=== PATIENT | male | born 1945 | race Caucasian/White ===

== ENCOUNTER 2017-04-03 05:24 | Emergency (ER) | payer MEDICARE, BC ==
[2017-04-03 06:05] VITALS: BP 157/88
--- NOTE | 2017-04-03 06:33 | EDM.PDOC ---
ED HPI GENERAL MEDICAL PROBLEM - General Chief Complaint: Genitourinary Problem Stated Complaint: PAINFUL URINATION Time Seen by Provider: 04/03/17 06:15 Source of Information: Reports: Patient History Limitations: Reports: No Limitations - History of Present Illness INITIAL COMMENTS - FREE TEXT/NARRATIVE: 71-year-old male with dysuria for the past week. He was taking [id number] azathioprine which decreased his symptoms for several days but over the last 24 hours it's much worse. Some lower abdominal pain but no back pain, no fever. He has had a urinary tract infection once 2 years ago. Denies nausea or vomiting. Onset: Gradual Severity: Mild Associated Symptoms: Reports: Other (No back pain). Denies: Fever/Chills, Malaise, Nausea/Vomiting, Shortness of Breath right abdominal pain Pain Score (Numeric/FACES): 5 headache Pain Score (Numeric/FACES): 6 - Related Data Allergies Allergy/AdvReac Type Severity Reaction Status Date / Time No Known Allergies Allergy Verified 04/03/17 05:44 Home Meds: Home Meds [place] 0.5 mg PO ASDIRECTED 04/03/17 [History] Cyanocobalamin (Vitamin B12) [Vitamin B13] 500 mcg PO DAILY 04/03/17 [History] Ergocalciferol (Vitamin D2) [Vitamin D2] 2,000 units PO DAILY 04/03/17 [History] Finasteride [Proscar] 5 mg PO BEDTIME 04/03/17 [History] Furosemide [Lasix] 40 mg PO DAILY 04/03/17 [History] Levothyroxine 175 mg PO ASDIRECTED 04/03/17 [History] Losartan [Cozaar] 100 mg PO DAILY 04/03/17 [History] Metoprolol Succinate 50 mg PO DAILY 04/03/17 [History] Multivitamin with Minerals [Multiple Vitamin] 1 tab PO DAILY 04/03/17 [History] [place]-3/DHA/Epa/Fish Oil [[place]-3 Fish Oil 1,000 MG Sfgl] 1,000 mg PO DAILY 07/16 [History] Omeprazole 40 mg PO DAILY 04/03/17 [History] Oxybutynin Chloride [Ditropan Xl] 10 mg PO BEDTIME 04/03/17 [History] Pravastatin [Pravachol] 20 mg PO BEDTIME 04/03/17 [History] Ranitidine HCl [Ranitidine] 300 mg PO BEDTIME 04/03/17 [History] Tamsulosin HCl [Flomax] 0.4 mg PO BEDTIME 04/03/17 [History] Vitamin E 400 unit PO DAILY 04/03/17 [History] Past Medical History HEENT History: Reports: Hard of Hearing, Impaired Vision Cardiovascular History: Reports: High Cholesterol, Hypertension Gastrointestinal History: Reports: GERD, Hemorrhoids, Other (See Below) 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 Genitourinary History: Reports: BPH Musculoskeletal History: Reports: Arthritis, Back Pain, Chronic, Neck Pain, Chronic, Other (See Below) Other Musculoskeletal History: bulging discs Neurological History: Reports: Headaches, Chronic, Migraines Dermatologic History: Reports: Other (See Below) Other Dermatologic History: damaged skin removed on forehead and cheeks due to sun damage - Infectious Disease History Infectious Disease History: Reports: Chicken Pox, Measles, Mumps - Past Surgical History GI Surgical History: Reports: Colonoscopy Musculoskeletal Surgical History: Reports: Shoulder Surgery, Other (See Below) Other Musculoskeletal Surgeries/Procedures:: right rotator cuff surgery 2015. bursitis right hip Social & Family History - Tobacco Use Smoking Status *Q: Never Smoker - Caffeine Use Caffeine Use: Reports: Coffee, Soda - Recreational Drug Use Recreational Drug Use: No ED ROS GENERAL - Review of Systems Review Of Systems: See Below Constitutional: Denies: Fever, Chills Respiratory: Denies: Shortness of Breath Cardiovascular: Denies: Chest Pain GI/Abdominal: Reports: Abdominal Pain. Denies: Nausea, Vomiting : Reports: Dysuria, Frequency (Patient urinated 4 times overnight), Urgency Skin: Reports: No Symptoms Neurological: Reports: No Symptoms. Denies: Headache ED EXAM, RENAL/ - Physical Exam Exam: See Below Exam Limited By: No Limitations General Appearance: Alert, No Apparent Distress Respiratory/Chest: No Respiratory Distress Cardiovascular: Regular Rate, Rhythm GI/Abdominal: Soft, Tender (Some discomfort to palpation across the lower abdomen) Back Exam: No: CVA Tenderness (R), CVA Tenderness (L) Neurological: Alert, Oriented Skin Exam: Warm, Dry Course - Vital Signs Last Recorded V/S: Last Vital Signs Temp 97.6 F 04/03/17 06:05 Pulse 71 04/03/17 06:05 Resp 17 04/03/17 06:05 BP 157/88 H 04/03/17 06:05 Pulse Ox 91 L 04/03/17 06:05 - Orders/Labs/Meds Orders: Active Orders 24 hr Category Date Time Status CULTURE URINE [RM] Stat Lab 04/03/17 06:24 Received Labs: Laboratory Tests 04/03/17 Range/Units 06:14 Urine Color Brown Urine Appearance Cloudy Urine pH 6.5 (4.5-8.0) Ur Specific [place] 1.015 (1.008-1.030) Urine Protein 500 H (NEGATIVE) mg/dL Urine Glucose (UA) Normal (NEGATIVE) mg/dL Urine Ketones Negative (NEGATIVE) mg/dL Urine Occult Blood Large (NEGATIVE) Urine Nitrite Positive H (NEGAITVE) Urine Bilirubin Small (NEGATIVE) Urine Urobilinogen 1 (NORMAL) mg/dL Ur Leukocyte Esterase Large (NEGATIVE) Urine RBC Semi-packed H (0-5) Urine WBC 20-30 H (0-5) Ur Epithelial Cells Rare Amorphous Sediment Not seen Urine Bacteria Many Urine Mucus Not seen - Re-Assessments/Exams Free Text/Narrative Re-Assessment/Exam: 04/03/17 06:32 A UA was obtained. He was markedly abnormal. Nitrite positive, bacteria and WBCs present. A culture was initiated. 04/03/17 06:38 Patient will be started on Bactrim DS twice a day for 5 days. I recommended he repeat the urine in 2-3 weeks if symptoms resolve to make sure that the hematuria resolves. He can return anytime if worsening, or recheck in 3-4 days if not improving satisfactorily. Departure - Departure Time of Disposition: 07:07 Disposition: Home, Self-Care 01 Condition: Good Clinical Impression: UTI, Urinary tract infectious disease - Discharge Information Instructions: Urinary Tract Infection, Adult, [id number] Referrals: PCP,None [Primary Care Provider] - Forms: ED Department Discharge Care Plan Goals: Take the antibiotic twice daily for the next 5 days. Consider rechecking in 2-3 days if not improving satisfactorily, or return anytime if worsening such as fever or vomiting the medication. It would also be prudent to recheck the urine in 2-3 weeks if symptoms resolve to make sure the blood in your urine clears as well. - My Orders Last 24 Hours: My Active Orders 04/03/17 06:24 CULTURE URINE [RM] Stat - Assessment/Plan Last 24 Hours: My Active Orders 04/03/17 06:24 CULTURE URINE [RM] Stat
== END 2017-04-03 07:06 | disposition home or self-care (01) ==
LOC: JP.ED 05:24
DX: N39.0 Urinary tract infection, site not specified (principal); I10 Essential (primary) hypertension; E78.00 Pure hypercholesterolemia, unspecified; G43.909 Migraine, unspecified, not intractable, without status migrainosus
CPT/HCPCS: 81001; 87086; 87088; 87186; 99283; 99284

== ENCOUNTER 2017-06-23 04:03 | Emergency (ER) | payer MEDICARE, BC ==
[2017-06-23] MEDS ORDERED: Aspirin 81 MG Tab.Chew PO ONE (04:13)
[2017-06-23] MEDS ORDERED: Ketorolac 60 MG/2 ML SDV IM ONE (04:18)
[2017-06-23] MEDS ORDERED: Codeine/guaiFENesin 100mg-10 MG/5 ML Syrup 10 ML Cup PO ONE (04:21)
--- NOTE | 2017-06-23 04:21 | EDM.PDOC ---
ED HPI GENERAL MEDICAL PROBLEM - General Chief Complaint: Chest Pain Stated Complaint: CHEST PAIN/SOB Time Seen by Provider: 06/23/17 04:12 Source of Information: Reports: Patient, RN Notes Reviewed History Limitations: Reports: No Limitations - History of Present Illness INITIAL COMMENTS - FREE TEXT/NARRATIVE: 71-year-old gentleman presents to the emergency department today with complaint of cough and chest discomfort, he states he's had chest pain for the last 2 days he did have exposure to grandchildren 3 days ago has developed a cough he states his chest is hurting from cough, denies any fevers no nausea vomiting no diaphoresis he does complain of shortness of breath does have a remote history of tobacco use no history of coronary artery disease Anterior Chest Pain Score (Numeric/FACES): 7 - Related Data Allergies Allergy/AdvReac Type Severity Reaction Status Date / Time No Known Allergies Allergy Verified 04/03/17 05:44 Home Meds: Home Meds Cabergoline 0.5 mg PO ASDIRECTED 04/03/17 [History] Cyanocobalamin (Vitamin B12) [Vitamin B13] 500 mcg PO DAILY 04/03/17 [History] Ergocalciferol (Vitamin D2) [Vitamin D2] 2,000 units PO DAILY 04/03/17 [History] Finasteride [Proscar] 5 mg PO BEDTIME 04/03/17 [History] Furosemide [Lasix] 40 mg PO DAILY 04/03/17 [History] Levothyroxine 175 mg PO ASDIRECTED 04/03/17 [History] Losartan [Cozaar] 100 mg PO DAILY 04/03/17 [History] Metoprolol Succinate 50 mg PO DAILY 04/03/17 [History] Multivitamin with Minerals [Multiple Vitamin] 1 tab PO DAILY 04/03/17 [History] [place]-3/DHA/Epa/Fish Oil [[place]-3 Fish Oil 1,000 MG Sfgl] 1,000 mg PO DAILY 07/16 [History] Omeprazole 40 mg PO DAILY 04/03/17 [History] Oxybutynin Chloride [Ditropan Xl] 10 mg PO BEDTIME 04/03/17 [History] Pravastatin [Pravachol] 40 mg PO BEDTIME 04/03/17 [History] Ranitidine HCl [Ranitidine] 300 mg PO BEDTIME 04/03/17 [History] Tamsulosin HCl [Flomax] 0.4 mg PO BEDTIME 04/03/17 [History] Vitamin E 400 unit PO DAILY 04/03/17 [History] Past Medical History HEENT History: Reports: Hard of Hearing, Impaired Vision Cardiovascular History: Reports: High Cholesterol, Hypertension Gastrointestinal History: Reports: GERD, Hemorrhoids, Other (See Below) 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 Genitourinary History: Reports: BPH Musculoskeletal History: Reports: Arthritis, Back Pain, Chronic, Neck Pain, Chronic, Other (See Below) Other Musculoskeletal History: bulging discs Neurological History: Reports: Headaches, Chronic, Migraines Dermatologic History: Reports: Other (See Below) Other Dermatologic History: damaged skin removed on forehead and cheeks due to sun damage - Infectious Disease History Infectious Disease History: Reports: Chicken Pox, Measles, Mumps - Past Surgical History GI Surgical History: Reports: Colonoscopy Musculoskeletal Surgical History: Reports: Shoulder Surgery, Other (See Below) Other Musculoskeletal Surgeries/Procedures:: right rotator cuff surgery 2015. bursitis right hip Social & Family History - Tobacco Use Smoking Status *Q: Never Smoker - Caffeine Use Caffeine Use: Reports: Coffee, Soda - Recreational Drug Use Recreational Drug Use: No ED ROS GENERAL - Review of Systems Review Of Systems: See Below Constitutional: Denies: Fever, Chills HEENT: Reports: No Symptoms Respiratory: Reports: Shortness of Breath, Pleuritic Chest Pain, Cough. Denies : Sputum Cardiovascular: Reports: Chest Pain GI/Abdominal: Reports: No Symptoms : Reports: No Symptoms Musculoskeletal: Reports: No Symptoms Skin: Reports: No Symptoms Neurological: Reports: No Symptoms ED EXAM, GENERAL - Physical Exam Exam: See Below Free Text/Narrative:: General: Male, not in any distress, alert and oriented x3 HEENT: head is atraumatic normocephalic, eyes pupils equal round reactive to light, sclera clear no conjunctivitis appreciated. Ears tympanic membranes clear and trejo landmarks and light reflex are present bilaterally canals are clear. Nose no septal deviation, nares are clear, no blood present. Mouth mucosa is moist and pink no erythema or exudate noted in soft palate, tongue is midline uvula is midline, dentition is intact. Neck: Supple no thyromegaly no tracheal deviation. Nodes: Cervical nodes subclavicular nodes nontender no palpable lymphadenopathy noted. Lungs: Coarse breath sounds but I don't appreciate any adventitious noises CV: Regular rate and rhythm S1 and S2 appreciated no murmurs rubs or gallops noted. Abdomen: Soft, nontender, no palpable masses or organomegaly appreciated, no distention no guarding bowel sounds are present, Neuro: Cranial nerves II through XII grossly intact Skin: Warm and dry, intact Extremities: No lower extremity edema appreciated, Course - Vital Signs Last Recorded V/S: Last Vital Signs Temp 97.5 F 06/23/17 04:10 Pulse 54 L 06/23/17 04:40 Resp 20 06/23/17 04:40 BP 118/77 06/23/17 04:40 Pulse Ox 94 L 06/23/17 04:40 - Orders/Labs/Meds Orders: Active Orders 24 hr Category Date Time Status Cardiac Monitoring [RC] .As Directed Care 06/23/17 04:13 Active EKG Documentation Completion [RC] ASDIRECTED Care 06/23/17 04:14 Active Chest 2V [CR] Urgent Exams 06/23/17 04:18 Taken EKG 12 Lead [EK] Stat Ther 06/23/17 04:14 Ordered Labs: Laboratory Tests 06/23/17 06/23/17 Range/Units 04:13 04:13 WBC 2.7 L (4.5-11.0) K/uL RBC 4.51 (4.30-5.90) M/uL Hgb 13.2 (12.0-15.0) g/dL Hct 39.9 L (40.0-54.0) % MCV 89 (80-98) fL MCH 29 (27-31) pg MCHC 33 (32-36) % Plt Count 148 L (150-400) K/uL Neut % (Auto) 50 (36-66) % Lymph % (Auto) 30 (24-44) % [place] % (Auto) 19 H (2-6) % Eos % (Auto) 1 L (2-4) % Baso % (Auto) 1 (0-1) % Sodium 140 (140-148) mmol/L Potassium 3.3 L (3.6-5.2) mmol/L Chloride 105 (100-108) mmol/L Carbon Dioxide 25 (21-32) mmol/L Anion Gap 13.3 (5.0-14.0) mmol/L BUN 24 H (7-18) mg/dL Creatinine 1.3 (0.8-1.3) mg/dL Est Cr Clr Drug Dosing 65.68 mL/min Estimated GFR (MDRD) 54 L (>60) Glucose 100 (74-106) mg/dL Calcium 8.4 L (8.5-10.1) mg/dL Total Bilirubin 0.5 (0.2-1.0) mg/dL AST 44 H (15-37) U/L ALT 39 (12-78) U/L Alkaline Phosphatase 53 (46-116) U/L CK-MB (CK-2) 1.5 (0-3.6) mg/mL Troponin I 0.026 (0.000-0.056) ng/mL NT-Pro-B Natriuret Pep 57 (5-125) pg/mL Total Protein 5.9 L (6.4-8.2) g/dL Albumin 2.4 L (3.4-5.0) g/dL Globulin 3.5 (2.3-3.5) g/dL Albumin/Globulin Ratio 0.7 L (1.2-2.2) Meds: Medications Discontinued Medications Generic Name Dose Route Start Last Admin Trade Name Freq PRN Reason Stop Dose Admin Aspirin 324 mg 06/23/17 04:13 Aspirin PO 06/23/17 04:14 ONETIME ONE Guaifenesin/Codeine Phosphate 10 ml 06/23/17 04:21 06/23/17 04:38 Robitussin Ac PO 06/23/17 04:22 10 ml ONETIME ONE Administration Ketorolac Tromethamine 60 mg 06/23/17 04:18 06/23/17 04:37 Toradol IM 06/23/17 04:19 60 mg ONETIME ONE Administration Departure - Departure Time of Disposition: 05:13 Disposition: Home, Self-Care 01 Condition: Good Clinical Impression: Bronchitis Referrals: PCP,None [Primary Care Provider] - Forms: ED Department Discharge Additional Instructions: Take full course of antibiotics, use ibuprofen as needed for chest pain symptoms , use Robitussin-AC as needed for cough, Please followup with your primary care provider in 3-5 days if not better, please call return to the emergency department with worsening of symptoms. - My Orders Last 24 Hours: My Active Orders 06/23/17 04:13 Cardiac Monitoring [RC] .As Directed 06/23/17 04:14 EKG Documentation Completion [RC] ASDIRECTED EKG 12 Lead [EK] Stat 06/23/17 04:18 Chest 2V [CR] Urgent - Assessment/Plan Last 24 Hours: My Active Orders 06/23/17 04:13 Cardiac Monitoring [RC] .As Directed 06/23/17 04:14 EKG Documentation Completion [RC] ASDIRECTED EKG 12 Lead [EK] Stat 06/23/17 04:18 Chest 2V [CR] Urgent Plan: Assessment Acuity = acute Site and laterality = bronchitis Etiology = probable bacterial cause Manifestations = cough, pleuritic chest pain Location of injury = Home Lab values = WBC low at 2.7 consistent leukopenia, potassium low at 3.3 consistent hypokalemia CK-MB and troponin both negative, probe BNP normal at 57 albumin low at 2.4 consistent with hypoalbuminemia EKG demonstrates sinus rhythm no ST depressions or elevations, chest x-ray I did review films myself I cannot appreciate any acute process, the official read from radiology is pending Plan He had significant relief of his chest pain with the Toradol 60 mg IM 1, Robitussin-AC did help suppress his cough. He'll be discharged home with Z-Evaristo per package directions, Robitussin-AC 10 mL by mouth every 6 hours when necessary total of 120 mL, follow-up with primary care 3-5 days if not better This note was dictated using [employer] voice recognition software please call with any questions on syntax or preeti.
[2017-06-23 05:14] VITALS: BP 95/61
--- NOTE | 2017-06-23 09:46 | CR ---
Chest 2V FINDINGS: The heart and vascular structures are normal in appearance. No infiltrates or effusions are demonstrated. There is mild fibrosis of the left lower lobe. The skeletal structures are unremarkabl e. IMPRESSION: 1. No acute findings.
== END 2017-06-23 05:19 | disposition home or self-care (01) ==
LOC: JP.ED 04:03
DX: J40 Bronchitis, not specified as acute or chronic (principal); E78.00 Pure hypercholesterolemia, unspecified; I10 Essential (primary) hypertension; Z79.899 Other long term (current) drug therapy
CPT/HCPCS: 36415; 71046; 80053; 82553; 83880; 84484; 85025; 93005; 96372; 99284; 99285; A9270; J1885

== ENCOUNTER 2021-10-27 12:30 | Emergency (ER) | payer MEDICARE, BC ==
[2021-10-27 13:10] VITALS: BP 183/92; PULSE 70
[2021-10-27] MEDS ORDERED: Doxycycline 100 MG Cap PO ONE (13:19)
== END 2021-10-27 13:31 | disposition home or self-care (01) ==
LOC: EEVIPCON 12:30 → JP.ED 12:30
DX: S30.860A Insect bite (nonvenomous) of lower back and pelvis, initial encounter (principal); I10 Essential (primary) hypertension; E78.00 Pure hypercholesterolemia, unspecified; K21.9 Gastro-esophageal reflux disease without esophagitis; Z79.899 Other long term (current) drug therapy; W57.XXXA Bitten or stung by nonvenomous insect and other nonvenomous arthropods, initial encounter
CPT/HCPCS: 99281; 99282; A9270

== ENCOUNTER 2022-02-27 07:14 | Emergency (ER) | payer MEDICARE, BC ==
[2022-02-27 08:08] VITALS: BP 160/88; PULSE 62
== END 2022-02-27 09:42 | disposition home or self-care (01) ==
LOC: JP.ED 07:14
DX: N39.0 Urinary tract infection, site not specified (principal); E78.00 Pure hypercholesterolemia, unspecified; I10 Essential (primary) hypertension; Z79.899 Other long term (current) drug therapy; Z87.891 Personal history of nicotine dependence
CPT/HCPCS: 81001; 87086; 87088; 87186; 99283

== ENCOUNTER 2023-01-10 08:22 | Emergency (ER) | payer MEDICARE, BC ==
[2023-01-10 08:48] VITALS: PULSE 58
[2023-01-10 09:45] LABS: ANION GAP 6.6 mmol/L (5.0-14.0); CALCIUM 8.4 mg/dL (8.5-10.1); CREATININE 1.2 mg/dL (0.8-1.3); EST CRCL DRUG DOSING (CG) 64.97 mL/min
[2023-01-10] MEDS ORDERED: Hydrochlorothiazide 25 MG Tab PO ONE (09:57)
[2023-01-10 10:26] VITALS: BP 162/84
== END 2023-01-10 10:31 | disposition home or self-care (01) ==
LOC: JP.ED 08:22
DX: I10 Essential (primary) hypertension (principal); E78.00 Pure hypercholesterolemia, unspecified; K21.9 Gastro-esophageal reflux disease without esophagitis; N40.0 Benign prostatic hyperplasia without lower urinary tract symptoms; E03.9 Hypothyroidism, unspecified; E66.9 Obesity, unspecified; Z68.33 Body mass index [BMI] 33.0-33.9, adult; Z79.82 Long term (current) use of aspirin; Z79.899 Other long term (current) drug therapy
CPT/HCPCS: 36415; 80048; 93005; 99283; A9270

== ENCOUNTER 2023-12-31 02:08 | Inpatient (IN) | payer MEDICARE ==
[2023-12-31 03:01] LABS: BASOPHILS ABSOLUTE AUTO 0.03 K/uL (0.00-0.10); BASOPHILS PERCENT AUTO 0.5 % (0.1-1.3); EOSINOPHILS PERCENT AUTO 3.4 % (0.0-5.4); HEMATOCRIT 41.3 % (38.4-49.7); HEMOGLOBIN 14.3 g/dL (12.9-16.9); IMMATURE GRAN PERCENT AUTO 0.2 % (0.0-0.7); LYMPHOCYTES ABSOLUTE AUTO 0.48 K/uL (0.8-3.3); LYMPHOCYTES PERCENT AUTO 8.2 % (11.4-47.7); MEAN CORPUSCULAR HGB CONC 34.6 g/dL (31.6-35.5); MEAN CORPUSCULAR VOLUME 86.6 fL (81.4-99.0); MONOCYTES ABSOLUTE AUTO 0.54 K/uL (0.20-0.90); MONOCYTES PERCENT AUTO 9.3 % (3.3-12.6); NEUTROPHILS ABSOLUTE AUTO 4.57 K/uL (1.0-7.6); NEUTROPHILS PERCENT AUTO 78.4 % (40.0-78.1); PLATELET COUNT,PLT 191 K/uL (130-375); RED BLOOD CELL COUNT 4.77 M/uL (4.14-5.76); WHITE BLOOD CELL COUNT,WBC 5.8 K/uL (3.2-11.0)
[2023-12-31 03:02] LABS: IMMATURE GRAN ABSOLUTE AUTO 0.01 K/uL (0.00-0.23)
[2023-12-31] MEDS: Sodium Chloride 0.9% 1,000 ML IV SCH ×2 (03:03→15:34)
[2023-12-31 03:19] LABS: LACTIC ACID 1.7 mmol/L (0.4-2.0)
[2023-12-31 03:26] LABS: ALANINE AMINOTRANSFERASE,ALT 17 U/L (12-78); ALBUMIN 3.3 g/dL (3.4-5.0); ALKALINE PHOSPHATASE 77 U/L (46-116); ASPARTATE AMNIOTRANSFERASE,AST 16 U/L (15-37); BLOOD UREA NITROGEN,BUN 25 mg/dL (7-18); C-REACTIVE PROTEIN 6.01 mg/dL (<0.50); CALCIUM 9.2 mg/dL (8.5-10.1); CARBON DIOXIDE,CO2 23 mmol/L (21-32); CHLORIDE,CL 102 mmol/L (100-108); CREATININE 1.8 mg/dL (0.8-1.3); EST CRCL DRUG DOSING (CG) 42.63 mL/min; ESTIMATED GFR 38 mL/min (>60); GLUCOSE RANDOM 164 mg/dL (74-106); PROTEIN TOTAL,TP 6.6 g/dL (6.4-8.2); SODIUM,NA 140 mmol/L (140-148)
[2023-12-31 03:27] LABS: ANION GAP 17.9 mmol/L (5.0-14.0); POTASSIUM,K 2.9 mmol/L (3.6-5.2)
[2023-12-31] MEDS: NS + KCl 20mEq/L 500 ML IV SCH (07:09)
[2023-12-31] MEDS: fentaNYL 50 MCG/ML SDV IVPUSH ONE (07:38)
[2023-12-31] MEDS: metroNIDAZOLE/Normal Saline 500 MG in Premix Bag 1 BAG IV SCH (09:24)
[2023-12-31] MEDS ORDERED: Acetaminophen 325 MG Tab PO PRN (10:02)
[2023-12-31] MEDS ORDERED: HYDROmorphone 0.5 MG/0.5 ML Syringe IVPUSH PRN (10:02)
[2023-12-31] MEDS ORDERED: oxyCODONE 5 MG Tab PO PRN (10:02)
[2023-12-31] MEDS ORDERED: Sodium Chloride 0.9% 10 ML Syringe FLUSH PRN (10:02)
[2023-12-31] MEDS ORDERED: Naloxone 0.4 MG/ML SDV IVPUSH PRN (10:02)
[2023-12-31] MEDS ORDERED: CABERGOLINE 1 MG PO SCH (10:02)
[2023-12-31] MEDS ORDERED: Ondansetron 4 MG/2 ML SDV IV PRN (10:02)
[2023-12-31] MEDS: Ciprofloxacin in D5W 400 MG in Premix Bag 1 BAG IV SCH (10:29)
[2023-12-31] MEDS: Potassium Chloride 20 MEQ Tab.ER PO ONE (10:31)
[2023-12-31] MEDS: Famotidine 20 MG Tab PO SCH (10:59)
[2023-12-31] MEDS: Aspirin 81 MG Tab.EC PO SCH (10:59)
[2023-12-31] MEDS: atorvaSTATin 20 MG Tab PO SCH (10:59)
[2023-12-31] MEDS: Metoprolol Succinate 50 MG Tab.ER PO SCH (11:00)
[2023-12-31] MEDS: Oxybutynin 5 MG Tab PO SCH (11:00)
[2023-12-31] MEDS: Losartan 50 MG Tab PO SCH (11:00)
[2023-12-31] MEDS: Levothyroxine 25 MCG Tab PO SCH (11:00)
[2023-12-31] MEDS: Levothyroxine 100 MCG Tab PO SCH (11:01)
[2023-12-31] MEDS: Hydrochlorothiazide 25 MG Tab PO SCH (11:01)
[2023-12-31] MEDS: Enoxaparin 40 MG/0.4 ML Syringe SUBCUT SCH (11:01)
[2023-12-31] MEDS: Potassium Chloride 10 MEQ in Premix Bag 1 BAG IV SCH (12:10)
[2023-12-31] MEDS: Potassium Chloride 100 ML ONE (15:32)
[2023-12-31 17:07] LABS: CALCIUM 8.5 mg/dL (8.5-10.1); CREATININE 1.9 mg/dL (0.8-1.3); EST CRCL DRUG DOSING (CG) 40.38 mL/min
[2023-12-31] MEDS: Sodium Chloride 0.9% 1,000 ML IV ONE (20:25)
[2023-12-31] MEDS: Finasteride 5 MG Tab PO SCH (20:26)
[2023-12-31] MEDS: Tamsulosin 0.4 MG Cap.ER PO SCH (20:26)
[2023-12-31] MEDS: Dimethicone 20%/Zinc Oxide 25% 56 GM Spray Bottle TOP PRN (20:32)
[2023-12-31] MEDS: Latanoprost 0.005% Ophth Soln 2.5 ML Bottle EYEBOTH SCH (20:32)
[2024-01-01 05:07] LABS: HEMATOCRIT 35.9 % (38.4-49.7); MEAN CORPUSCULAR HEMOGLOBIN 29.9 pg (31.6-35.5); MEAN CORPUSCULAR HGB CONC 33.4 g/dL (31.6-35.5); MEAN CORPUSCULAR VOLUME 89.3 fL (81.4-99.0); RED BLOOD CELL COUNT 4.02 M/uL (4.14-5.76); WHITE BLOOD CELL COUNT,WBC 4.3 K/uL (3.2-11.0)
[2024-01-01 05:21] LABS: CALCIUM 8.2 mg/dL (8.5-10.1); CREATININE 1.8 mg/dL (0.8-1.3); EST CRCL DRUG DOSING (CG) 42.63 mL/min; MAGNESIUM 1.3 mg/dL (1.8-2.4); POTASSIUM,K 3.7 mmol/L (3.6-5.2)
[2024-01-01] MEDS: Magnesium Sulfate/Water 2 GM in Premix Bag 1 BAG IV SCH (08:40)
[2024-01-01] MEDS: Potassium Chloride 20 MEQ Tab.ER PO ONE (08:43)
[2024-01-01] MEDS: Magnesium Oxide 400 MG Tab PO SCH (08:49)
[2024-01-02] MEDS ORDERED: guaiFENesin 100 MG/5 ML Soln 10 ML UD Cup PO PRN (03:06)
[2024-01-02 06:22] LABS: ANION GAP 10.1 mmol/L (5.0-14.0); CALCIUM 8.8 mg/dL (8.5-10.1); CREATININE 1.5 mg/dL (0.8-1.3); EST CRCL DRUG DOSING (CG) 51.15 mL/min; MAGNESIUM 2.7 mg/dL (1.8-2.4); POTASSIUM,K 3.6 mmol/L (3.6-5.2)
[2024-01-02] MEDS ORDERED: Hypromellose 0.3% Ophth Soln 15 ML Bottle EYEBOTH PRN (07:17)
[2024-01-02] MEDS: Hypromellose 0.3% Ophth Soln 15 ML Bottle EYEBOTH PRN (07:51)
[2024-01-02 08:38] VITALS: BP 109/62; PULSE 60
[2024-01-02] MEDS: metroNIDAZOLE 250 MG Tab PO SCH (09:26)
[2024-01-02] MEDS: Ciprofloxacin 500 MG Tab PO SCH (09:26)
== END 2024-01-02 11:15 | disposition home or self-care (01) | DRG 392 ==
LOC: JP.ED 02:08 → JP.MS 08:33
PROVIDERS: ADMIT Hospitalist; ATTEND Hospitalist
DX: R07.89 Other chest pain (principal); K52.9 Noninfective gastroenteritis and colitis, unspecified; N13.8 Other obstructive and reflux uropathy; R53.1 Weakness; R19.7 Diarrhea, unspecified; K21.9 Gastro-esophageal reflux disease without esophagitis; I10 Essential (primary) hypertension; E03.9 Hypothyroidism, unspecified; G43.909 Migraine, unspecified, not intractable, without status migrainosus; G89.29 Other chronic pain; M54.2 Cervicalgia; M54.9 Dorsalgia, unspecified; E78.00 Pure hypercholesterolemia, unspecified; H91.90 Unspecified hearing loss, unspecified ear; R07.9 Chest pain, unspecified; R06.02 Shortness of breath; H54.7 Unspecified visual loss; I12.9 Hypertensive chronic kidney disease with stage 1 through stage 4 chronic kidney disease, or unspecified chronic kidney disease; N40.1 Benign prostatic hyperplasia with lower urinary tract symptoms; N18.30 Chronic kidney disease, stage 3 unspecified; E86.0 Dehydration; M19.90 Unspecified osteoarthritis, unspecified site; E87.6 Hypokalemia; E83.42 Hypomagnesemia; Z98.890 Other specified postprocedural states; Z79.82 Long term (current) use of aspirin; Z79.890 Hormone replacement therapy; Z79.899 Other long term (current) drug therapy
CPT/HCPCS: 36415; 71275; 74177; 80053; 83605; 83690; 83880; 84484; 85025; 85379; 86140; 93005; 93010; 96361; 96365; 96375; 99285 ×2; J3010; J3480; J7030; 80048; 83735; 84132; 85027; 87046; 87427; 87493; 89055; 99222; 99231; 99238; A9270-GY; J0744; J1650; J1836; J3475; U0002